=== PATIENT | male | born 1985 | race Caucasian/White ===

== ENCOUNTER 2022-07-11 13:04 | Emergency (ER) | payer OTHER, SELFPAY ==
[2022-07-11 13:23] VITALS: BP 130/78; PULSE 92; RESP 18; TEMP 36.7; O2SAT 94
--- NOTE | 2022-07-11 14:54 | ED.RECABL ---
HPI - Recheck/Abnormal Lab/Rx General Chief Complaint: Recheck/Abnormal Lab/Rx Stated Complaint: lt. foot infected/swollen Time Seen by Provider: 07/11/22 14:47 Source: patient Mode of arrival: Ambulatory Limitations: no limitations History of Present Illness HPI narrative: 36-year-old male who at the end of last week had a cryo freezing of a wart on the back of his left heel. He developed a blister afterwards. It has been painful. Has not had any drainage. Has not tried anything prior to arrival. Related Data Allergies Allergy/AdvReac Type Severity Reaction Status Date / Time No Known Drug Allergies Allergy Verified 07/11/22 13:27 Review of Systems Constitutional Constitutional: Reports system reviewed and no additional complaints, except as documented Musculoskeletal Musculoskeletal: Reports system reviewed and no additional complaints, except as documented Integumentary/Breasts Skin/Breast: Reports system reviewed and no additional complaints, except as documented Neurologic Neurologic: Reports system reviewed and no additional complaints, except as documented Hematologic/Lymphatic On Anticoagulants: No Patient History Medical History Healthy adult Social History lives independently: Yes Exam Initial Vital Signs Initial Vital Signs: Vital Signs Temperature 98.0 F 07/11/22 13:23 Pulse Rate 92 H 07/11/22 13:23 Respiratory Rate 18 07/11/22 13:23 Blood Pressure 130/78 07/11/22 13:23 Pulse Oximetry 94 07/11/22 13:23 Oxygen Delivery Method 07/11/22 13:23 [facility] Head: normal to inspection and normocephalic Skin Other: Patient with a large blood blister on the posterior aspect of the left heel. No surrounding erythema. Neuro Sensory Exam: no sensory deficits noted Extrem General: capillary refill normal Course Vital Signs Vital signs: Vital Signs - 8 hr 07/11/22 13:23 Temperature 98.0 F Pulse Rate 92 H Respiratory Rate 18 Blood Pressure 130/78 Pulse Oximetry 94 Oxygen Delivery Method Room Air MDM - Recheck/Abnormal Lab/Rx MDM Narrative Medical decision making narrative: There was a rather large blood blister on the posterior aspect of his left heel without any signs of infection. I suspect that this is because of the cryo freezing that he had of the wart. The blood blister was popped which did provide some relief and was covered with a bandage. We discussed care instructions and return precautions. He expressed understanding and agreement. Discharge Plan Departure Patient Disposition: Home Clinical Impression: Blood blister Instructions: DI for Blisters Activity Restrictions/Additional Instructions: You can put topical antibiotic ointment over the area. You can keep it covered with a covered with a bandage. Return to the emergency department for any new or worsening symptoms. Visit Report Forms: Patient Portal/API
== END 2022-07-11 15:03 | disposition home or self-care (01) ==
PROVIDERS: Emergency Provider Emergency Medicine
DX: S90.822A Blister (nonthermal), left foot, initial encounter (principal); X58.XXXA Exposure to other specified factors, initial encounter
CPT/HCPCS: 99281